=== PATIENT | male | born 1940 | race Caucasian/White ===

== ENCOUNTER → 2024-02-28 08:36 | Outpatient (CLI) | payer MEDICARE, SELFPAY ==
--- NOTE | 2024-02-28 08:37 | DI.ECHO.S_ITS ---
[facility] +---------+ : : [address] : : : : [id number] : : : : Phone: [phone]+ Echocardiogram Report + + :Name: KEVIN SMITH Study Date: 02/28/2024 Height: 72 in : :[facility] ReadingLocation: Weight: 180 lb : : Gender: Male BSA: 2.0 m2 : :: 1940 Age: 83 yrs BP: 138/81 mmHg: :Reason For Study: SHORTNESS OF BREATH : :Ordering Physician: ASHLEY, : :AVIVA Bell Performed By: Valerie Caceres : :Referring: AVIVA JAMESON : + + Interpretation Summary The ejection fraction is estimated to be 55-60%. Diastolic parameters suggest probable normal left ventricular diastolic function and normal filling pressures. The right ventricle is normal in size and function. 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 The right ventricular systolic pressure is estimated to be at least 29 mmHg based on an estimated right atrial pressure of 3 mm Hg. Procedure: A two-dimensional transthoracic echocardiogram with color flow and Doppler was performed. The study quality was technically adequate. There is no prior echocardiogram noted for this patient. The patient was in sinus rhythm with heart rates between 56-58 bpm during the exam. Left Ventricle: The left ventricle is normal in size. Left ventricular wall thickness is at the upper limits of normal. The ejection fraction is estimated to be 55-60%. Diastolic parameters suggest probable normal left ventricular diastolic function and normal filling pressures. Right Ventricle: The right ventricle is normal in size and function. Atria: The left atrial size is normal. Right atrial size is normal. There is no Doppler evidence for an interatrial shunt. Mitral Valve: The mitral valve is normal in structure and function. There is mild mitral annular calcification. There is trace mitral regurgitation. Aortic Valve: The aortic valve is trileaflet. The aortic valve is mildly calcified. The peak aortic velocity is 2.7 m/sec. The aortic valve mean gradient is 17 mmHg. The dimensionless index is 0.36. The indexed aortic valve area is 0.63 bridge builder?/mA?. The calculated aortic valve area is 1.3 cm2. There is trace aortic regurgitation. Tricuspid Valve: The tricuspid valve is normal in structure and function. There is trace tricuspid regurgitation. The right ventricular systolic pressure is estimated to be at least 29 mmHg based on an estimated right atrial pressure of 3 mm Hg. Pulmonic Valve: The pulmonic valve leaflets are thin and pliable; valve motion is normal. There is trace pulmonic regurgitation. Great Vessels: The aortic root is normal size. The dimensions of the ascending aorta are normal. The IVC is of normal diameter and collapses greater than 50% with a sniff. This suggests a low right atrial pressure of 3 mm Hg. Pericardium/ Pleura There is no pericardial effusion. There is no pleural effusion. MMode/2D Measurements & Calculations LVIDd: 3.7 cm LVOT diam: 2.1 cm LVIDs: 2.5 cm Ao root diam: 3.8 cm FS: 33.1 % asc Aorta Diam: 3.2 cm IVSd: 1.2 cm Ao Arch Diam (Prox Trans): 2.9 cm LVPWd: 0.89 cm LV leiva. diameter/BSA (cm/m^2): 1.8 LV sys. diameter/BSA (cm/m^2): 1.2 LA A2 area: 18.2 cm2 RA long axis: 5.7 cm LA A4 area: 22.0 cm2 RA area: 18.1 cm2 LA length (vol): 6.1 cm RA vol: 49.1 ml LA vol: 56.0 ml RA : 24.1 ml/m2 LA vol index: 27.5 ml/m2 IVC diam: 1.3 cm RVD1 (basal): 4.1 cm TAPSE: 2.0 cm Doppler Measurements & Calculations Ao V2 max: 262.1 cm/sec LVOT Max Hugh: 95.8 cm/sec Ao V2 mean: 188.2 cm/sec LV V1 max P.7 mmHg Ao max P.3 mmHg LV V1 VTI: 20.5 cm Ao mean P.8 mmHg FEDERICA(I,D): 1.2 cm2 Ao V2 VTI: 58.8 cm FEDERICA(V,D): 1.3 cm2 sev ratio: 0.35 FEDERICA indexed to BSA (cm^2/m^2): 0.61 MV E max hugh: 73.6 cm/sec TR max hugh: 254.8 cm/sec MV A max hugh: 94.1 cm/sec TR max P.0 mmHg MV E/A: 0.78 PA V2 max: 118.4 cm/sec Med Peak E' Hugh: 6.7 cm/sec PA V2 mean: 78.7 cm/sec E/E' med: 11.0 PA mean P.8 mmHg Lat Peak E' Hugh: 5.6 cm/sec PA pr(Accel): 48.2 mmHg E/E' lat: 13.1 E/e' average: 12.1 MV dec time: 0.36 sec SV(LVOT): 73.1 ml Reading Physician:07:[id number] PM
--- NOTE | 2024-02-28 08:38 | DI.NM.S_ITS ---
PROCEDURE: NM BRENNA PERF SPECT R&S PHARM Rest and pharmacological stress myocardial perfusion SPECT with gated imaging and ejection fraction RADIOPHARMACEUTICAL: 11.5 mCi Tc-99m tetrafosmin IV at rest and 25 mCi Tc-99m tetrafosmin IV at peak effect of pharmacological stress. A [id number] was performed. INDICATIONS: Shortness of breath TECHNIQUE: Radiopharmaceutical was injected at peak stress test, and also at rest. SPECT images were obtained. SPECT myocardial perfusion images were displayed in short axis, horizontal long axis, and vertical long axis views. Gated images were reviewed using EdeniQ software. COMPARISON: None. CARDIAC STRESS: A pharmacologic stress test was performed under the supervision of an attending staff, using an infusion of regadenoson 0.4 mg IV. Hemodynamic data: There is normal blood pressure and heart rate response to pharmacologic stress. Symptoms: The patient denied anginal chest pain. EKG: No diagnostic changes of ischemia; no ectopy. FINDINGS: Raw data: There is good myocardial uptake of radiotracer. No significant motion artifacts. Jgfa-qn-cbyfe ratio is 0.43 (normal is less than 0.38 for tetrafosmin tracer). Left ventricle function: Gated images demonstrate normal left ventricular wall thickening. No segmental wall motion abnormalities. No transient ischemic dilation; TID is 0.93 (normal less than 1.3). Left ventricle resting end diastolic volume is 79 mL. Left ventricle stress ejection fraction is 73%; normal range is above 45%. Myocardial perfusion: There is normal distribution of activity in the right and left ventricular myocardium. No fixed or reversible perfusion defects. IMPRESSION: Low risk study. No evidence of pharmacologic induced ischemia or scar. Normal LV size and function. Dictated by: Aviva Jameson D.O. on 02/28/2024 at 16:37 Approved by: Aviva Jameson D.O. on 02/28/2024 at 16:44
== END ==
PROVIDERS: PCP Internal Medicine; Referring Provider Internal Medicine Cardiovascular Disease; Visit Provider Internal Medicine Cardiovascular Disease
DX: R06.02 Shortness of breath (principal); I34.81 Nonrheumatic mitral (valve) annulus calcification
CPT/HCPCS: 78452; 93017; 93306; A9502; J2785

== ENCOUNTER → 2025-11-23 09:29 | Outpatient (CLI) | payer MEDICARE, SELFPAY ==
--- NOTE | 2025-11-23 09:32 | DI.US.S_ITS ---
PROCEDURE: US FINE NEEDLE ASPIRATION INDICATIONS: Other diseases of salivary glands TECHNIQUE: The indications, alternatives, benefits, risks, and complications of the procedure were explained to the patient. Written informed consent was obtained and placed in the chart. Real-time sonography was utilized to choose the site for left submandibular mass sampling. The skin was prepped and draped in the usual sterile fashion. 1% lidocaine was infiltrated down to the site of interest. Serial hypodermic needles were then advanced into the site of interest under direct sonographic visualization, and serial needle aspirates were obtained. The needles were then withdrawn; a bandage was applied to the procedure site. COMPARISON: None. FINDINGS: Sample site(s): Irregular left submandibular mass. Needle: 25 gauge. Number of passes: Seven Medications: 1% lidocaine for local anaesthesia. Complications: None. IMPRESSION: Successful ultrasound-guided left submandibular mass fine needle aspiration, with cytology results pending. Dictated by: Lakeshia Barrera M.D. on 11/23/2025 at 14:26 Approved by: Lakeshia Barrera M.D. on 11/23/2025 at 14:27
--- NOTE | 2025-11-23 11:21 | PATH_ITS ---
Note [facility] Accession Number: [id number] TESTS RESULT FLAG UNITS REF RANGE LAB Clinician Provided Cytology Information No. of containers..01 Other (Miscellaneous) Source: LEFT SUBMANDIBULAR G Clinician ICD10: K11.8 DIAGNOSIS: LEFT SUBMANDIBULAR GLAND, FINE NEEDLE ASPIRATION. INCONCLUSIVE. GROUPS OF ATYPICAL EPITHELIOID CELLS, IN A BACKGROUND OF DEGENERATION, SEE COMMENT. COMMENT: THE CELL BLOCK IS ACELLULAR THEREFORE NO ANCILLARY STUDIES CAN BE PERFORMED TO FURTHER CHARACTERIZE. CLINICAL/RADIOLOGIC CORRELATION AND FURTHER WORK UP RECOMMENDED. Pathologist ICD10: K11.8 Signed out by: Danilo Benoit MD, Pathologist NPI- [id number] Performed by: Cameron Rome, Assembler Body ([facility]) Gross description: 24 CC, RED, HAZY RECIEVED: IN CYTOLYT WITH BLUE CAP CONTAINER.VO /VDU 11/27/2025 0538 Local FLAG LEGEND: L-Low Normal,H-High Normal,LL-Alert Low,HH-Alert High <-Panic Low,>-Panic High,A-Abnormal,AA-Critical Abnormal Performed at: 01 =[address] [facility] [facility], [place] [address] Enmanuel Bunch MD, Performed at: [address] [facility], [place], [place] [id number] MD Enmanuel Bunch MD Phone: [phone]
== END ==
LOC: US 09:30
PROVIDERS: PCP Internal Medicine; Referring Provider Otolaryngology; Visit Provider Otolaryngology
DX: K11.8 Other diseases of salivary glands (principal)
CPT/HCPCS: 10005